=== PATIENT | female | born 1960 | race Caucasian/White ===

== ENCOUNTER → 2016-05-06 | Outpatient (CLI) | payer BC ==
--- NOTE | 2016-05-10 07:06 | MM ---
Reason for exam: screening (asymptomatic). Last mammogram was performed 1 year ago. History: Patient is postmenopausal. Cyst aspiration of the right breast, 1998. Physical Findings: A clinical breast exam by your physician is recommended on an annual basis and results should be correlated with mammographic findings. MG Screening Mammo w CAD Bilateral CC and MLO view(s) were taken. Prior study comparison: May 05, 2015, bilateral MG 3d screening mammo w/cad. April 02, 2014, bilateral MG screening mammo w CAD. March 05, 2013, bilateral digital screening mammo w/CAD. The breast tissue is heterogeneously dense. This may lower the sensitivity of mammography. No significant changes when compared with prior studies. ASSESSMENT: Negative, BI-RAD 1 RECOMMENDATION: Routine screening mammogram of both breasts in 1 year.
== END | disposition home or self-care (01) ==
LOC: RADMAMWWP 14:44
PROVIDERS: ATTEND Internal Medicine
DX: Z12.31 Encounter for screening mammogram for malignant neoplasm of breast (principal)

== ENCOUNTER → 2017-08-24 | Outpatient (CLI) | payer BC ==
--- NOTE | 2017-08-26 08:12 | MM ---
Reason for exam: screening (asymptomatic). Last mammogram was performed 1 year and 4 months ago. History: Patient is postmenopausal. Cyst aspiration of the right breast, 1998. Physical Findings: A clinical breast exam by your physician is recommended on an annual basis and results should be correlated with mammographic findings. MG Screening Mammo w CAD Bilateral CC and MLO view(s) were taken. Prior study comparison: May 06, 2016, bilateral MG screening mammo w CAD. May 05, 2015, bilateral MG 3d screening mammo w/cad. The breast tissue is heterogeneously dense. This may lower the sensitivity of mammography. No suspicious abnormality. No significant changes when compared with prior studies. ASSESSMENT: Benign, BI-RAD 2 RECOMMENDATION: Routine screening mammogram of both breasts in 1 year.
== END | disposition home or self-care (01) ==
LOC: RADMAMWWP 12:39
PROVIDERS: ATTEND Internal Medicine
DX: Z12.31 Encounter for screening mammogram for malignant neoplasm of breast (principal)
CPT/HCPCS: 77067

== ENCOUNTER → 2018-01-10 | Outpatient (CLI) | payer BC ==
--- NOTE | 2018-01-10 15:40 | CONS ---
CONSULTATION REASON FOR CONSULTATION: Snoring. 57-year-old, female patient, referred to me due to concerns of obstructive sleep apnea. The patient's main complaint is loud snoring and she does not have any significant hypersomnia or sleepiness. She occasionally has woken up from sleep, gasping for air and because of her loud snore. Otherwise her sleep is solid and she does not have frequent nocturnal arousals. Upon arousal in the morning, the patient feels refreshed. [place] score is at 7. She occasionally has a dry mouth. No recent weight gain or weight loss. No sinus disease. No postnasal drainage. She is on tramadol for pain control. She notes that Tramadol makes her snoring worse. She has quit drinking alcohol late in the afternoon or evening. No history of substance abuse or alcoholism. She has a family history of sleep apnea. Her son has obstructive sleep apnea. No nocturia. No grinding of the teeth. No anxiety or panic attacks. No palpitation. No heartburn. No sweating. No anxiety. No claustrophobia. No sexual dysfunction. She goes to bed around 11:00 p.m. She wakes up between 7 and 8 in the morning. The patient takes more than 30 minutes sometimes to fall asleep. PAST MEDICAL HISTORY: 1. 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 2. Anxiety/panic attack currently on Prozac. 3. Pain maintained on tramadol. SOCIAL HISTORY: Nonsmoker. No history of alcohol. No history of IV drugs. SURGICAL HISTORY: Includes hernia repair, hysterectomy and stent for lower extremity and vascular bypass surgery involving the left lower extremity. FAMILY HISTORY: Family history is positive for obstructive sleep apnea in her son. REVIEW OF SYSTEMS: 12-point review of system was done and all of the positive findings were mentioned above in the history of present illness. PHYSICAL EXAMINATION: BP is 124/82, pulse 76, respirations 16, temperature 98, O2 saturation 97% on room air. Weight is 157, height is 5 feet 2 inches, BMI 28.7. Neck size is 13-1/2 inches. GENERAL APPEARANCE: Calm, comfortable. Head is atraumatic, normocephalic. Neck is short, supple. Crowding of the posterior pharynx. Mallampati class IV. There is no goiter or neck masses. LUNGS: Clear to auscultation. HEART: Sounds regular rate and rhythm. Normal S1, S2. No S3, S4. No murmurs. ABDOMEN: Soft, nontender. No organomegaly. EXTREMITIES: No edema. No cyanosis or clubbing. IMPRESSION: 1. Loud snoring. This is likely a primary snorer rather than an underlying obstructive sleep apnea knowing that the patient does not have any typical features associated with obstructive sleep apnea. We will investigate this patient further with home sleep study looking for underlying sleep breathing disorder. 2. Chronic anxiety/panic. 3. History of left lower extremity deep venous thrombosis. PLAN: 1. Encourage weight loss. 2. Sleep in a sidewise body position. 3. Keep head of bed elevated at all times at 20 degrees. 4. Avoid alcoholic beverages late at night. 5. Home sleep study will be done to rule out obstructive sleep apnea in this patient with the patient's snoring. If positive will consider CPAP therapy. If negative the patient may proceed with conservative measures of treatment of snore and we may ultimately offer a snore guard to reduce the severity of snoring. 6. We will continue to follow. MMODL / IJN: [id number] /
== END | disposition home or self-care (01) ==
LOC: SLEEP 11:25
PROVIDERS: ATTEND Internal Medicine Critical Care Medicine
DX: R06.83 Snoring (principal); F41.0 Panic disorder [episodic paroxysmal anxiety]; R68.2 Dry mouth, unspecified; R52 Pain, unspecified; Z79.01 Long term (current) use of anticoagulants; Z79.899 Other long term (current) drug therapy; Z86.718 Personal history of other venous thrombosis and embolism; Z79.891 Long term (current) use of opiate analgesic; Z90.710 Acquired absence of both cervix and uterus; Z98.890 Other specified postprocedural states
CPT/HCPCS: 99211

== ENCOUNTER → 2018-04-04 | Outpatient (CLI) | payer BC ==
--- NOTE | 2018-04-04 19:40 | PN ---
PROGRESS NOTE This is a 58-year-old female patient coming in for a discussion regarding results of her sleep study. The patient initially presented to me with loud snoring and she underwent a home sleep study. She was found to have mild to moderate obstructive sleep apnea with an AHI of 15. Her disease was worse in the supine body position. At the same time, the patient demonstrated a mild degree of nocturnal oxygen desaturation. On today's evaluation she is reporting that she does have some tiredness and sleepiness during the day. She is interested in CPAP therapy based on the results of the sleep study. I went over the results of the sleep study at length with her. I noticed that the patient has gained only 3 pounds since her last evaluation approximately 2 months ago. For now she is still snoring very loudly, to the point where the patient's is sleeping in a separate bedroom. She has become a bit more somnolent and fatigued. Her [place] score is 6 and she showed interest in CPAP therapy. PHYSICAL EXAMINATION: BP is 141/74, pulse 74, respirations 16, temperature 97.8, saturation 97% on room air. Weight is 160. Height is 5 feet 2 inches. GENERAL APPEARANCE: Calm, comfortable. Head is atraumatic, normocephalic. NECK: Supple. Mallampati class IV. There is no goiter neck mass. LUNGS: Clear to auscultation. HEART: Heart sounds are regular rate and rhythm. Normal S1, S2. No S3, S4. No murmurs. ABDOMEN: Soft, nontender. No organomegaly. EXTREMITIES: No edema. No cyanosis or clubbing. IMPRESSION: 1. Obstructive sleep apnea, mild to moderate in severity, apnea/hypopnea index of 15, worse in the supine body position. 2. Loud snoring. 3. Increased fatigue. 4. Mild sleepiness; [place] score 6. 5. Previous history of deep venous thrombosis. 6. Previous history of anxiety/panic, on Prozac. PLAN: 1. I had a lengthy discussion with the patient regarding the results of the sleep study. 2. The different treatment options were discussed, including conservative weight loss and implementing good sleep hygiene measures. 3. The patient opted to try CPAP therapy. She decided to undertake treatment, knowing that she has been feeling more fatigued and sleepy during the day. I offered APAP therapy, minimum pressure of 5, maximum pressure of 20. She will undertake the treatment and she will see me back in 30 to 90 days to assess her clinical response and compliance. MMLILIA / ARTEMION: [id number] /
== END ==
LOC: SLEEP 15:25
PROVIDERS: ATTEND Internal Medicine Critical Care Medicine
DX: G47.33 Obstructive sleep apnea (adult) (pediatric) (principal); R53.83 Other fatigue; F41.9 Anxiety disorder, unspecified; Z86.718 Personal history of other venous thrombosis and embolism; Z99.89 Dependence on other enabling machines and devices; Z79.899 Other long term (current) drug therapy

== ENCOUNTER → 2018-06-27 | Outpatient (CLI) | payer BC ==
--- NOTE | 2018-06-27 16:08 | PN ---
PROGRESS NOTE Leonila is 58, coming in for a compliance check. She is doing extremely well on her CPAP. She is on APAP, minimum pressure of 5, maximum pressure of 20, for an AHI of 15. Based on the compliance data that was collected, the patient has done very well over the past month. Based on the compliance data that was collected between 04/11/2019 and 05/09/2018, the patient had achieved around 6 hours and 11 minutes of CPAP use per night with an average pressure of 8.1, AHI is down to 1.6. No significant leaks. No central apneas. Upon further inquiry, the patient seems to be well rested. Her sleep quality is improved. She is waking up much more refreshed and alert and she wants to continue with the treatment. She is using AirFit N20 small size nose mask. No other complaints otherwise for now. PHYSICAL EXAMINATION: BP is 145/76, pulse 78, respirations 16, [place] score was 4. Saturation 95%. Temperature 98.3. Weight is 163. GENERAL APPEARANCE: Calm and comfortable. Head is atraumatic, normocephalic. NECK: Supple. No JVD. No goiter. No neck mass. Lungs diminished, otherwise clear. HEART: Sounds are regular rate and rhythm. Normal S1, S2. No S3, S4. No murmurs. ABDOMEN: Soft, nontender. No organomegaly. EXTREMITIES: No edema. No cyanosis or clubbing. IMPRESSION: 1. Symptomatic obstructive sleep apnea, AHI 15, currently on a APAP, minimum of 5, maximum 20 with excellent clinical response and compliance. PLAN: 1. Drop the humidity down to 3. 2. Increased temperature of the tubing up 84 degrees Fahrenheit. 3. Initiate this Smart start mode. 4. Continue APAP minimum of 5, maximum 20. 5. Continue using the AirFit N20 small size nose mask. 6. See me back in a year's time. MMODL / IJN: [id number] /
== END ==
LOC: SLEEP 14:37
PROVIDERS: ATTEND Internal Medicine Critical Care Medicine
DX: G47.33 Obstructive sleep apnea (adult) (pediatric) (principal); Z99.89 Dependence on other enabling machines and devices

== ENCOUNTER → 2018-07-03 | Outpatient (CLI) | payer BC ==
--- NOTE | 2018-07-03 15:43 | US ---
EXAMINATION TYPE: US pelvic complete DATE OF EXAM: 07/03/2018 COMPARISON: US 2012 CLINICAL HISTORY: R10.2 pelvic pain. Intermittent left pelvic pain, 4, para 4, total hysterec nidhi 2011 TECHNIQUE: . Transabdominal sonographic images of the pelvis were acquired. Date of LMP: 2011 EXAM MEASUREMENTS: Uterus: surgically absent Endometrial Stripe: surgically absent Right Ovary: surgically absent Left Ovary: surgically absent 1. Uterus: surgically absent 2. Endometrium: surgically absent 3. Right Ovary: surgically absent 4. Left Ovary: surgically absent 5. Bilateral Adnexa: wnl 6. Posterior cul-de-sac: wnl Uterus is surgically absent. No free fluid is seen in pelvic cul-de-sac. No adnexal masses are presen t. IMPRESSION: Unremarkable study after hysterectomy.
== END | disposition home or self-care (01) ==
LOC: RADUSWWP 14:47
PROVIDERS: ATTEND Internal Medicine
DX: R10.2 Pelvic and perineal pain (principal); Z90.710 Acquired absence of both cervix and uterus
CPT/HCPCS: 76857

== ENCOUNTER → 2019-03-05 | Outpatient (CLI) | payer BC ==
--- NOTE | 2019-03-06 09:44 | MM ---
Reason for exam: screening (asymptomatic). Last mammogram was performed 1 year and 6 months ago. History: Patient is postmenopausal. Cyst aspiration of the right breast, 1998. Physical Findings: A clinical breast exam by your physician is recommended on an annual basis and results should be correlated with mammographic findings. MG 3D Screening Mammo W/Cad Bilateral CC and MLO view(s) were taken. Prior study comparison: August 24, 2017, bilateral MG screening mammo w CAD. May 06, 2016, bilateral MG screening mammo w CAD. The breast tissue is heterogeneously dense. This may lower the sensitivity of mammography. Benign appearing bilateral calcifications. No significant changes when compared with prior studies. ASSESSMENT: Benign, BI-RAD 2 RECOMMENDATION: Routine screening mammogram of both breasts in 1 year.
== END ==
LOC: RADMAMWWP 14:53
PROVIDERS: ATTEND Internal Medicine
DX: Z12.31 Encounter for screening mammogram for malignant neoplasm of breast (principal)
CPT/HCPCS: 77063; 77067

== ENCOUNTER → 2020-08-28 | Outpatient (CLI) | payer BC, OTHER ==
--- NOTE | 2020-09-01 09:40 | MM ---
Reason for exam: screening (asymptomatic). Last mammogram was performed 1 year and 6 months ago. History: Patient is postmenopausal. Cyst aspiration of the right breast, 1998. Physical Findings: A clinical breast exam by your physician is recommended on an annual basis and results should be correlated with mammographic findings. MG Screening Mammo w CAD Bilateral CC and MLO view(s) were taken. Prior study comparison: March 05, 2019, bilateral MG 3d screening mammo w/cad. August 24, 2017, bilateral MG screening mammo w CAD. The breast tissue is heterogeneously dense. This may lower the sensitivity of mammography. No significant changes when compared with prior studies. ASSESSMENT: Benign, BI-RAD 2 RECOMMENDATION: Routine screening mammogram of both breasts in 1 year.
== END | disposition home or self-care (01) ==
LOC: RADMAMWWP 13:44
PROVIDERS: ATTEND Internal Medicine
DX: Z12.31 Encounter for screening mammogram for malignant neoplasm of breast (principal); Z78.0 Asymptomatic menopausal state
CPT/HCPCS: 77067

== ENCOUNTER → 2021-05-08 | Outpatient (CLI) | payer OTHER ==
--- NOTE | 2021-05-08 15:34 | BD ---
EXAMINATION TYPE: Axial Bone Density DATE OF EXAM: 05/08/2021 COMPARISON: 08/03/2013 CLINICAL HISTORY: Height: 61.5 IN Weight: 147 LBS FRAX RISK QUESTIONS: History of Fracture in Adulthood: RT WRIST AGE 55 RISK FACTORS HISTORY OF: History of Wrist Fracture: RT WRIST AGE 55 Active: YES Diet low in dairy products/other sources of calcium: YES Postmenopausal woman: AGE 51 MEDICATIONS: Additional Medications: CALCIUM, VIT D, XARELTO, EXAM MEASUREMENTS: Bone mineral densitometry was performed using the [employer] System. Bone mineral density as measured about the Lumbar spine is: ----- L1-L4(G/cm2): 0.978 T Score Values are as follows: ----- L2: -2.6 ----- L3: -1.5 ----- L4: -1.2 ----- L1-L4: -1.7 Bone mineral density has: Decreased -2.3% since study of: 08/03/2013 Bone mineral density about the R hip (g/cm2): 0.774 Bone mineral density about the L hip (g/cm2): 0.764 T Score values are as follows: -----R Neck: -1.9 -----L Neck: -2.0 -----R Total: -1.1 -----L Total: -1.5 Bone mineral density has: Decreased -4.2% since study of: 08/03/2013 IMPRESSION: Osteopenia (T Score between -2.5 and -1). There is slightly increased risk of fracture and the patient may be considered for treatment. Re-Screen 2-5 years. NOTE: T-SCORE=SD OF THE YOUNG ADULT MEAN.
== END | disposition home or self-care (01) ==
LOC: RADBDWWP 14:13
PROVIDERS: ATTEND Internal Medicine
DX: M85.89 Other specified disorders of bone density and structure, multiple sites (principal)
CPT/HCPCS: 77080

== ENCOUNTER → 2021-05-08 | Outpatient (CLI) | payer OTHER ==
--- NOTE | 2021-05-08 15:23 | US ---
EXAMINATION TYPE: US abdomen complete DATE OF EXAM: 05/08/2021 COMPARISON: NONE CLINICAL HISTORY: R74.8 Elevated liver enzymes. Elevated LFT's EXAM MEASUREMENTS: Liver Length: 15.5 cm Gallbladder Wall: 0.2 cm CBD: 0.7 cm Spleen: 8.5 cm Right Kidney: 10.0 x 4.8 x 5.5 cm Left Kidney: 11.3 x 5.2 x 4.9 cm Pancreas: 3mm pancreatic duct visualized body, normal limits 2 mm, tail obscured by overlying bowel gas Liver: wnl Gallbladder: Single, mobile gallstone Evidence for sonographic Esquivel's sign: No CBD: Slightly dilated Spleen: wnl Right Kidney: wnl Left Kidney: Possible parapelvic cyst mid= 2.0 x 1.7 x 1.7 cm Upper IVC: wnl Abd Aorta: wnl IMPRESSION: 1. Minimal prominence of the pancreatic duct in the body. Consider ERCP for additional evaluation. 2. Cholelithiasis. 3. Left renal cyst may be a peripelvic cyst.
== END | disposition home or self-care (01) ==
LOC: RADUSWWP 11:05
PROVIDERS: ATTEND Internal Medicine
DX: K80.20 Calculus of gallbladder without cholecystitis without obstruction (principal); N28.1 Cyst of kidney, acquired
CPT/HCPCS: 76700

== ENCOUNTER → 2022-07-20 | Outpatient (CLI) | payer OTHER ==
--- NOTE | 2022-07-21 16:21 | MM ---
Reason for Exam: Screening (asymptomatic). Last mammogram was performed 1 year(s) and 10 month(s) ago. Patient History: Menarche at age 13. First Full-Term at age 19. Left ovary removed at age 51. Right ovary removed at age 51. Hysterectomy at age 51. Postmenopausal. Patient has history of breast feeding. 1998, Cyst Aspiration on the Right side. Risk Values: Breanna 5 year model risk: 1.1%. NCI Lifetime model risk: 5.0%. Prior Study Comparison: 05/05/2015 Bilateral Screening Mammogram, [facility]. 05/06/2016 Bilateral Screening Mammogram, [facility]. 08/24/2017 Bilateral Screening Mammogram, [facility]. 03/05/2019 Bilateral Screening Mammogram, [facility]. 08/28/2020 Bilateral Screening Mammogram, [facility]. Tissue Density: The breast tissue is heterogeneously dense. This may lower the sensitivity of mammography. Findings: Analyzed By CAD. Pattern appears symmetrical and stable. No significant interval change is evident. Benign vascular and round calcifications are present bilaterally No suspicious groups of microcalcifications, spiculated or lobular masses, architectural distortion or other secondary signs of malignancy are mammographically apparent. Overall Assessment: Benign, BI-RAD 2 Management: Screening Mammogram of both breasts in 1 year. A negative mammogram report should not preclude additional follow up of suspicious palpable abnormalities. Patient should continue monthly self breast exam. A clinical breast exam by your physician is recommended on an annual basis and results should be correlated with mammographic findings. Electronically signed and approved by: Dillon Garcia D.O. Radiologis
== END | disposition home or self-care (01) ==
LOC: RADMAMWWP 12:55
PROVIDERS: ATTEND Family Medicine
DX: Z12.31 Encounter for screening mammogram for malignant neoplasm of breast (principal); Z78.0 Asymptomatic menopausal state
CPT/HCPCS: 77063; 77067

== ENCOUNTER → 2023-07-27 | Outpatient (CLI) | payer MEDICARE ==
--- NOTE | 2023-07-28 13:39 | MM ---
Reason for Exam: Screening (asymptomatic). Last mammogram was performed 1 year(s) and 1 month(s) ago. Patient History: Menarche at age 13. First Full-Term at age 19. Left ovary removed at age 51. Right ovary removed at age 51. Hysterectomy at age 51. Postmenopausal. Patient has history of breast feeding. 1998, Cyst Aspiration on the Right side. Risk Values: Breanna 5 year model risk: 1.1%. NCI Lifetime model risk: 4.9%. Prior Study Comparison: 03/05/2019 Bilateral Screening Mammogram, [facility]. 08/28/2020 Bilateral Screening Mammogram, [facility]. 07/20/2022 Bilateral MG 3D screening mammo w/cad, [facility]. Tissue Density: There are scattered areas of fibroglandular density. Findings: Analyzed By CAD. Right breast: There is no suspicious group of microcalcifications or new suspicious mass. Benign-appearing calcifications right breast. Left breast: There is no suspicious group of microcalcifications or new suspicious mass. Benign-appearing calcifications left breast. Overall Assessment: Benign, BI-RAD 2 Management: Screening Mammogram of both breasts in [address] [facility] will attempt to contact patient to return for supplemental views and ultrasound if indicated. Patient should continue monthly self-breast exams. A clinical breast exam by your physician is recommended on an annual basis. This exam should not preclude additional follow-up of suspicious palpable abnormalities. Note on Breanna scores and lifetime risk: 1. A Breanna score greater than 3% is considered moderate risk. If this is the case, consider specialist referral to assess eligibility for a risk reducing agent. 2. If overall lifetime risk for the development of breast cancer is 20% or higher, the patient may qualify for future screening with alternating mammogram and breast MRI. Electronically signed and approved by: Ivan Harmon DO
== END | disposition home or self-care (01) ==
LOC: RADMAMWWP 14:06
PROVIDERS: ATTEND Family Medicine
DX: Z12.31 Encounter for screening mammogram for malignant neoplasm of breast (principal); Z78.0 Asymptomatic menopausal state
CPT/HCPCS: 77063; 77067

== ENCOUNTER → 2024-08-24 | Outpatient (CLI) | payer MEDICARE ==
--- NOTE | 2024-08-24 14:47 | MM ---
Reason for Exam: Screening (asymptomatic). Last mammogram was performed 1 year(s) and 1 month(s) ago. Patient History: Menarche at age 13. First Full-Term at age 19. Left ovary removed at age 51. Right ovary removed at age 51. Hysterectomy at age 51. Postmenopausal. Patient has history of breast feeding. 1998, Cyst Aspiration on the Right side. Risk Values: Breanna 5 year model risk: 1.2%. NCI Lifetime model risk: 4.7%. Prior Study Comparison: 08/28/2020 Bilateral Screening Mammogram, [facility]. 07/20/2022 Bilateral MG 3D screening mammo w/cad, [facility]. 07/27/2023 Bilateral MG 3D screening mammo w/cad, [facility]. Tissue Density: The breasts are heterogeneously dense, which may obscure small masses. Findings: Analyzed By CAD. There are benign-appearing round and vascular calcifications bilaterally redemonstrated. Benign-appearing bilateral axillary lymph nodes are again seen. There is no suspicious group of microcalcifications or new suspicious mass in either breast. Overall Assessment: Benign, BI-RAD 2 Management: Screening Mammogram of both breasts in 1 year. . Patient should continue monthly self-breast exams. A clinical breast exam by your physician is recommended on an annual basis. This exam should not preclude additional follow-up of suspicious palpable abnormalities. Note on Breanna scores and lifetime risk: 1. A Breanna score greater than 3% is considered moderate risk. If this is the case, consider specialist referral to assess eligibility for a risk reducing agent. 2. If overall lifetime risk for the development of breast cancer is 20% or higher, the patient may qualify for future screening with alternating mammogram and breast MRI. [facility], , 08/24/2024 2:44 PM. Electronically signed and approved by: Rolando Brown M.D.
--- NOTE | 2024-08-24 15:13 | BD ---
EXAMINATION TYPE: Axial Bone Density DATE OF EXAM: 08/24/2024 CLINICAL HISTORY: 64 years old Female. ICD-10 CODE: Z78.0 POST MENOPAUSAL , Additional History: Height: 62 Weight: 155 FRAX RISK QUESTIONS: Alcohol (3 or more units per day): no Family History (Parent hip fracture): no Glucocorticoids (More than 3mos): no (Ex: prednisone, prednisolone, methylprednisolone, dexamethasone, and hydrocortisone). History of Fracture in Adulthood: no Secondary Osteoporosis: 1. Type 1 Diabetes: no 2. Hyperthyroidism: no 3. Menopause before 45: no 4. Malnutrition: no 5. Chronic liver disease: no Rheumatoid Arthritis: no Current Tobacco Use: no RISK FACTORS HISTORY OF: History of Wrist Fracture: right When: 5 years Surgery to Spine/Hip(right/left)/Wrist (right/left): no EXAM MEASUREMENTS: Bone mineral densitometry was performed using the [employer] System. Bone mineral density as measured about the Lumbar spine is: ----- L1-L4(G/cm2): 1.027 T Score Values are as follows: ----- L1: -1.1 ----- L2: -1.3 ----- L3: -1.7 ----- L4: -1.0 ----- L1-L4: -1.3 Z Score Values are as follows: ----- L1: 0.2 ----- L2: 0.0 ----- L3: -0.4 ----- L4: 0.3 ----- L1-L4: 0.1 Bone mineral density has: increased 5.0 % since study of: 05.08.2021 Bone mineral density about the R hip (g/cm2): 0.860 Bone mineral density about the L hip (g/cm2): 0.829 T Score values are as follows: -----R Neck: -2.1 -----L Neck: -2.1 -----R Total: -1.2 -----L Total: -1.4 Z Score values are as follows: -----R Neck: -0.7 -----L Neck: -0.8 -----R Total: -0.1 -----L Total: -0.4 Bone mineral density has: 0.0 % since study of: 1.14.2021 FRAX%s: The graph provided illustrates a 17.7% chance for a major osteoporotic fx and a 2.8% chance f or the hips probability for fx in 10 years time. IMPRESSION: Osteopenia (T Score between -2.5 and -1) remains present. There remains slightly increased risk of fracture and the patient may be considered for treatment. Re-Screen 2-5 years. NOTE: T-SCORE=SD OF THE YOUNG ADULT MEAN. [facility], , 08/24/2024 3:10 PM
== END | disposition home or self-care (01) ==
LOC: RADBDWWP 13:10
PROVIDERS: ATTEND Family Medicine
DX: Z12.31 Encounter for screening mammogram for malignant neoplasm of breast (principal); R92.333 Mammographic heterogeneous density, bilateral breasts; M85.89 Other specified disorders of bone density and structure, multiple sites; Z80.3 Family history of malignant neoplasm of breast; Z78.0 Asymptomatic menopausal state
CPT/HCPCS: 77063; 77067; 77080